=== PATIENT | female | born 1985 | race Caucasian/White ===

== ENCOUNTER 2025-04-16 15:43 | Outpatient (CLI) | payer BC, SELFPAY ==
--- NOTE | ~2025-04-16 | CT_ITS ---
CLINICAL INDICATION: Right flank pain COMPARISON: None. TECHNIQUE: Multiple contiguous axial images of the abdomen and pelvis were performed without the admi nistration of intravenous contrast The dose-length product (DLP) was 426.50 mGy-cm. Automated exposure control and iterative reconstruction technique were employed. FINDINGS/OBSERVATIONS: Visualized lower thorax: The bilateral lung bases are clear. The heart is of normal size, without pericardial effusion. Small hiatal hernia is present. Liver: The liver demonstrates homogeneous attenuation and is not enlarged. Gallbladder and biliary system: The gallbladder is only minimally distended, and otherwise unremarkable. Pancreas: Limited evaluation of the pancreas secondary to the lack of intravenous contrast. Spleen: The spleen demonstrates homogeneous attenuation and is not enlarged . Kidneys: The bilateral kidneys are unremarkable, without hydronephrosis or renal calculi. Adrenal glands: Unremarkable. Gastrointestinal tract: Fecal stasis within the colon. Appendix: The air-filled appendix is of normal caliber (axial series, images 63 through 74) Vasculature: Unremarkable. Lymph nodes: Limited evaluation without intravenous contrast Pelvic structures: The bladder is markedly distended, and otherwise unremarkable. The uterus is retroverted and retroflexed and nodular in contour for which fibroid disease is suspect ed. Body wall and musculoskeletal: Small fat-containing umbilical hernia. Straightening of the normal lordotic curvature of the lumbar spine is identified. No disc disease at the level of T12-L3. Right paracentral disc protrusion at the level of L3/L4 with trace mass effect on the spinal canal an d right neural foramen. Broad based disc protrusion at the level of L4/L5, with mass effect on the spinal canal and bilateral neuroforamen. Right paracentral disc protrusion at the level of L5/S1 with mass effect on the spinal canal and the right neural foramen. IMPRESSION: No obstructive uropathy. 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 Reviewed, dictated and finalized at location A. IMPRESSION: No obstructive uropathy. 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
== END 2025-04-16 15:44 | disposition home or self-care (01) ==
LOC: MICIMG 15:43
PROVIDERS: PCP Family Medicine; Visit Provider Family Medicine
DX: R10.9 Unspecified abdominal pain (principal); M51.369 Other intervertebral disc degeneration, lumbar region without mention of lumbar back pain or lower extremity pain
CPT/HCPCS: 74176